=== PATIENT | female | born 1930 | race Caucasian/White ===

== ENCOUNTER 2016-10-10 11:11 | Observation (INO) | payer MEDICARE ==
[2016-10-10 11:28] VITALS: BMI 28.5
[2016-10-10] MEDS ORDERED: Lidocaine 2% Jelly (Uro-Jet) TOP ONE (12:06)
--- NOTE | 2016-10-10 12:41 | C.PDOC ---
History Of Present Illness 86 year old female presents to the ED with complaints of constipation for the past 3 days. Patient states she took OTC medicine that usually helps however she had no relief today. She notes she has some associated rectal pain after attempting a bowel movement. Patient denies abdominal pain, nausea, vomiting, fever, chills, or any other complaints at this time. Time Seen by Provider: 10/10/16 11:35 Chief Complaint (Nursing): GI Problem History Per: Patient History/Exam Limitations: no limitations Onset/Duration Of Symptoms: Days Current Symptoms Are (Timing): Still Present Severity: Mild Past Medical History Reviewed: Historical Data, Nursing Documentation, Vital Signs Vital Signs: Last Vital Signs Temp 98.2 F 10/10/16 15:01 Pulse 68 10/10/16 15:01 Resp 18 10/10/16 15:01 BP 158/74 H 10/10/16 15:01 Pulse Ox 99 10/10/16 15:01 - Medical History PMH: Arthritis, Asthma, HTN, Hypercholesterolemia Family History: States: No Known Family Hx - Social History Hx Tobacco Use: No Hx Alcohol Use: No Hx Substance Use: No - Immunization History Hx Tetanus Toxoid Vaccination: No Hx Influenza Vaccination: No Hx Pneumococcal Vaccination: Yes Review Of Systems Except As Marked, All Systems Reviewed And Found Negative. Constitutional: Negative for: Fever, Chills Gastrointestinal: Positive for: Constipation, Rectal Pain. Negative for: Nausea , Vomiting, Abdominal Pain, Diarrhea Genitourinary: Negative for: Dysuria Musculoskeletal: Negative for: Back Pain Physical Exam - Physical Exam Appears: Non-toxic, No Acute Distress Skin: Normal Color, Warm, Dry, No Rash Head: Atraumatic, Normacephalic Eye(s): bilateral: Normal Inspection, PERRL, EOMI Oral Mucosa: Moist Neck: Normal ROM, Supple Chest: Symmetrical Cardiovascular: Rhythm Regular, No Friction Rub, No Murmur Respiratory: Normal Breath Sounds, No Accessory Muscle Use, No Rales, No Rhonchi , No Wheezing Gastrointestinal/Abdominal: Soft, No Tenderness, No Distention, No Guarding, No Rebound Extremity: Normal ROM, No Swelling Neurological/Psych: Oriented x3, Normal Speech, Normal Cognition, Normal Motor Gait: Steady ED Course And Treatment - Laboratory Results Result Diagrams: 10/10/16 15:39 10/10/16 15:39 O2 Sat by Pulse Oximetry: 96 (Room air) Pulse Ox Interpretation: Normal Medical Decision Making Medical Decision Making: Plan: -Obstructive series -Lidocaine 2% gel -Reassess Progress: Rectal disimpaction was performed by ANAT Caballero, with small bowel movement and no complications. Fleet enema placed and patient another large bowel movement. On re-exam, the patient reports improvement of symptoms. Lungs are CTA, heart is RRR, abdomen is soft, non-tender and tolerating PO well. Follow up with the medical doctor within 1-2 days. Return of worsened. Disposition - Disposition Disposition: HOME/ ROUTINE Disposition Time: 14:30 Condition: IMPROVED - Clinical Impression Clinical Impression: Hemorrhoids, Constipation - PA / DIRECTOR CLINICAL APPLICATIONS / Resident Statement MD/DO has reviewed & agrees with the documentation as recorded. - Scribe Statement The provider has reviewed the documentation as recorded by the Scribe Rosalva Schmitz. All medical record entries made by the Scribe were at my direction and personally dictated by me. I have reviewed the chart and agree that the record accurately reflects my personal performance of the history, physical exam, medical decision making, and the department course for this patient. I have also personally directed, reviewed, and agree with the discharge instructions and disposition.
[2016-10-10] MEDS ORDERED: Lidocaine 2% Jelly (Uro-Jet) ONE (12:48)
[2016-10-10 15:01] VITALS: BP 158/74; PULSE 68; RESP 18; TEMP 98.2
[2016-10-10 15:44] LABS: BASO # 0.1 K/uL (0.0-0.2); BASO % 0.7 % (0.0-2.0); EOS # 0.1 K/uL (0.0-0.7); EOS % 0.4 % (0.0-4.0); HEMATOCRIT 39.6 % (34.0-47.0); LYMPH # 0.7 K/uL (1.0-4.3); LYMPH % 6.1 % (20.0-40.0); MEAN CELL VOLUME 86.1 fL (81.0-99.0); MEAN CORPUSCULAR HEMOGLOBIN 28.3 pg (27.0-31.0); MEAN CORPUSCULAR HGB CONC 32.9 g/dL (33.0-37.0); MEAN PLATELET VOLUME 10.6 fL (7.2-11.7); MONO # 0.7 K/uL (0.0-0.8); MONO % 6.1 % (0.0-10.0); PLATELET COUNT 200 K/uL (130-400); RED CELL DISTRIBUTION WIDTH 14.5 % (11.5-14.5); WHITE BLOOD COUNT 12.1 K/uL (4.8-10.8)
[2016-10-10 15:45] LABS: VENOUS BLOOD GAS BASE EXCESS 4.5 mmol/L (0.0-2.0); VENOUS BLOOD GAS PCO2 46 mmHg (40-60); VENOUS BLOOD PH 7.42 (7.32-7.43)
[2016-10-10 15:52] LABS: CHLORIDE 101 mmol/L (98-107); POTASSIUM 4.3 mmol/L (3.6-5.2); SODIUM 141 mmol/L (132-148)
[2016-10-10 15:55] LABS: BLOOD UREA NITROGEN 21 mg/dL (7-17); CALCIUM 9.1 mg/dl (8.6-10.4); CARBON DIOXIDE 28 mmol/L (22-30); GFR AFRICAN-AMERICAN > 60; GLUCOSE,RANDOM 125 mg/dL (65-105)
[2016-10-10 16:04] LABS: NEUTROPHIL 87 % (50-75); TOTAL CELLS COUNTED 100
[2016-10-10 18:41] VITALS: O2SAT 96
--- NOTE | 2016-10-27 08:47 | RAD ---
Abdomen three views History: Constipation. Comparison: None available. Findings: Multiple distended/mildly dilated loops of small bowel seen within the mid and lower abdomen concerning for partial or developing small bowel obstruction. Moderate fecal retention in the left hemicolon. Surgical clips in the right upper abdomen. Degenerative changes in the spine and hips. Chronic interstitial lung markings in the lung youssef. Biapical pleural thickening in the lung youssef. Bibasilar breast and nipple shadows. Heart size within normal limits. Degenerative changes in the spine and bilateral hips. Sclerosis at the pubic symphysis. Impression: Multiple distended/mildly dilated loops of small bowel seen within the mid and lower abdomen concerning for partial or developing small bowel obstruction. Clinical correlation.
== END 2016-10-10 16:43 | disposition home or self-care (01) ==
LOC: C.ER 11:11 → C.9OBSV 13:00
PROVIDERS: ADMIT Emergency Medicine; ATTEND Emergency Medicine
DX: K64.9 Unspecified hemorrhoids (principal); K59.00 Constipation, unspecified; J45.909 Unspecified asthma, uncomplicated; I10 Essential (primary) hypertension; E78.00 Pure hypercholesterolemia, unspecified
CPT/HCPCS: 36415; 74022; 80048; 82803; 85025; 99284; G0378